=== PATIENT | male | born 1985 | race Caucasian/White ===

== ENCOUNTER → 2016-09-17 | Outpatient (REF) | LOC: WSOH 11:58 | DX: Z11.1 Encounter for screening for respiratory tuberculosis (principal) ==

== ENCOUNTER → 2016-09-28 | Outpatient (REF) | LOC: WSOH 08:34 | DX: Z00.00 Encounter for general adult medical examination without abnormal findings (principal) ==

== ENCOUNTER → 2019-07-19 | Outpatient (CLI) | payer OTHER | LOC: COL.RAD 10:03 | DX: I86.1 Scrotal varices (principal); N43.3 Hydrocele, unspecified ==